=== PATIENT | female | born 1990 | race Caucasian/White ===

== ENCOUNTER 2024-12-01 16:44 | Emergency (ER) | payer OTHER ==
[~2024-12-01] VITALS: Ht 175.3 cm; Wt 125.6 kg
[2024-12-01 16:44] VITALS: TEMP 98.1
[2024-12-01 17:20] LABS: BASOPHILS % 0.6 % (0.0-1.0); EOSINOPHILS % 1.5 % (0.0-6.0); LYMPHOCYTES % 29.8 % (18.0-39.1); MONOCYTES % 6.1 % (4.4-11.3); NEUTROPHILS % 61.8 % (38.7-80.0); RED CELL DISTRIBUTION WIDTH 14.6 % (11.7-14.4)
[2024-12-01 17:32] LABS: EST GLOMERULAR FILTRATION RATE 116.0 ML/MIN (>=60)
[2024-12-01] MEDS ORDERED: SODIUM CHLORIDE 0.9% 100 ML ONE (18:33)
[2024-12-01] MEDS ORDERED: IOPAMIDOL 370 MG/ML 100 ML INFUS..BTL INJ ONE (18:34)
[2024-12-01 18:53] LABS: INR 1.04
[2024-12-01] MEDS: SODIUM CHLORIDE 0.9% 1000ML 1,000 ML IV STA (19:07)
[2024-12-01 19:41] LABS: AMPHETAMINES SCREEN,URINE NEGATIVE (NEGATIVE); COCAINE SCREEN,URINE NEGATIVE (NEGATIVE); OPIATES SCREEN,URINE NEGATIVE (NEGATIVE)
[2024-12-01 19:42] LABS: CANNABINOIDS SCREEN,URINE NEGATIVE (NEGATIVE); METHADONE SCREEN, URINE NEGATIVE (NEGATIVE)
[2024-12-01 20:08] LABS: LEUKOCYTE ESTERASE ,URINE NEGATIVE (NEGATIVE); PROTEIN,URINE DIPSTICK NEGATIVE (NEGATIVE); URINE UROBILINOGEN 0.2 mg/dL (0.2 - 1)
[2024-12-01 20:20] LABS: EPITHELIAL CELLS,URINE MODERATE /LPF
[2024-12-01] MEDS ORDERED: HYDROXYZINE HCL25 MG PO (20:24)
[2024-12-01 20:30] VITALS: PULSE 64; RESP 20; O2SAT 98
== END 2024-12-01 20:53 | disposition home or self-care (01) ==
LOC: ER 17:09
DX: G43.109 Migraine with aura, not intractable, without status migrainosus (principal); R00.2 Palpitations; R20.0 Anesthesia of skin; M54.9 Dorsalgia, unspecified; G89.29 Other chronic pain; Z98.84 Bariatric surgery status
CPT/HCPCS: 36415; 70450; 70496; 70498; 71045; 80053; 80307; 81001; 82550; 83690; 83880; 84484; 84702; 85025; 85610; 93005; 99284; J7030; J7050; Q9967